=== PATIENT | male | born 1930 | race Caucasian/White ===

== ENCOUNTER 2019-04-24 09:17 | Emergency (ER) | payer MEDICARE, OTHER ==
[~2019-04-24] VITALS: Ht 175.3 cm; Wt 77.3 kg
[~2019-04-24 09:17] MED LIST: ATEN50TA2 PO; BUSP10TA PO; CETI1SYP16 PO; COUM1TAB17 PO; DONETAB5 PO; GLYB5TA PO; METF500T13 PO; NEXI40GR PO; NORV5TAB PO; PLAV1TAB2 PO; PRIM250T8 PO; ZYRT10CA PO; [UNRECOGNIZED DRUG - OTHER]
--- NOTE | 2019-04-24 09:59 | REP ---
CT brain: 04/24/2019. Indication: New head trauma. Comparison: None. Technique: Unenhanced axial CT images of the brain were obtained from skull base to vertex. Findings: There is no acute intracranial hemorrhage, acute cortical infarction, mass effect, hydrocephalus or acute calvarial fracture. Age-related volume loss is present. Intracranial atherosclerotic disease is noted. There is a punctate hyperdense focus within the superior right frontal region most consistent with calcified cortical vein. Patchy areas of hypoattenuation scattered throughout the cerebral hemisphere white matter. Posterior left parietal region scalp hematoma is noted. Impression: No acute intracranial process. Volume loss and sequelae of chronic microangiopathic ischemic disease. Electronically Signed by Leif Gross DO 04/24/2019 09:51 A
[2019-04-24 10:07] LABS: BASO % 0.4 % (0.0-1.0); EOS % 0.5 % (0.0-3.0); HEMATOCRIT 36.8 % (42.0-52.0); LYMPH # 0.6 10^3/uL (1.5-5.0); LYMPH % 7.6 % (24.0-44.0); MEAN CORPUSCULAR HGB CONC 32.6 g/dl (32.0-36.5); MEAN CORPUSCULAR VOLUME 98.1 fl (80.0-96.0); MONO # 0.8 10^3/uL (0.0-0.8); MONO % 9.2 % (0.0-5.0); NEUTROPHILS # 6.7 10^3/uL (1.5-8.5); NEUTROPHILS % 81.6 % (36.0-66.0); PLATELET COUNT, AUTOMATED 181 10^3/uL (150-450); RED BLOOD COUNT 3.75 10^6/uL (4.30-6.10); WHITE BLOOD COUNT 8.2 10^3/uL (4.0-10.0)
[2019-04-24] MEDS ORDERED: FOLBTAB3 PO (10:16)
[2019-04-24] MEDS ORDERED: GUAI400T9 PO (10:16)
[2019-04-24] MEDS ORDERED: D31000CA4 PO (10:16)
[2019-04-24] MEDS ORDERED: PACE200T PO (10:16)
--- NOTE | 2019-04-24 10:36 | REP ---
CT cervical spine: 04/24/2019. Indication: Cervical spine trauma. Comparison: None. Technique: Unenhanced axial images of the cervical spine were obtained with coronal sagittal reconstructions provided. Findings: There is no acute fracture, subluxation or dislocation. Mineralization/calcification of the supraspinatus/nuchal ligament are noted. There is no hemorrhage or additional acute post traumatic findings within the spinal canal. Sequelae of bilateral carotid endarterectomies are noted. Multilevel spondylitic sequelae are present most pronounced at C5/C6 and C6/C7. Impression: No acute osseous injuries of the cervical spine. Electronically Signed by Leif Gross DO 04/24/2019 10:27 A
--- NOTE | 2019-04-24 11:50 | REP ---
Single view chest: 04/24/2019. Indication: Cough. Comparison: None. Findings: There is no air space consolidation. There is no pleural effusion or pneumothorax. The cardiac silhouette is not enlarged. Aortic atherosclerotic disease is present. Impression: No acute cardiopulmonary process. Electronically Signed by Leif Gross DO 04/24/2019 11:42 A
[2019-04-24] MEDS ORDERED: ACETAMINOPHEN TAB 650MG DOSE (2X325MG) PO ONE (12:30)
[2019-04-24] MEDS ORDERED: LIDOCAINE 5% (LIDODERM) PATCH TD ONE (12:30)
[2019-04-24 12:54] VITALS: BP 170/74
== END 2019-04-24 13:37 | disposition home or self-care (01) ==
LOC: M ED 09:17 → EDBD 09:17 → M ED 13:37
DX: S00.81XA Abrasion of other part of head, initial encounter (principal); W00.0XXA Fall on same level due to ice and snow, initial encounter; Y92.89 Other specified places as the place of occurrence of the external cause; E11.9 Type 2 diabetes mellitus without complications; I25.10 Atherosclerotic heart disease of native coronary artery without angina pectoris; F33.9 Major depressive disorder, recurrent, unspecified; G25.0 Essential tremor; Z79.899 Other long term (current) drug therapy; Z79.84 Long term (current) use of oral hypoglycemic drugs; Z79.01 Long term (current) use of anticoagulants; Z88.0 Allergy status to penicillin